=== PATIENT | male | born 1975 | race Caucasian/White ===

== ENCOUNTER 2020-08-31 04:38 | Outpatient (CLI) | payer MEDICAID | END 2020-08-31 23:59 | disposition critical access hospital (66) | LOC: EMS 04:38 | PROVIDERS: ATTEND Surgery | DX: S05.92XA Unspecified injury of left eye and orbit, initial encounter (principal); Y04.8XXA Assault by other bodily force, initial encounter; Y93.89 Activity, other specified | CPT/HCPCS: A0425; A0429; A0999 ==

== ENCOUNTER 2020-08-31 04:59 | Emergency (ER) | payer MEDICAID ==
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
[2020-08-31] MEDS ORDERED: oxyCODONE 5 MG TABLET PO STA (06:32)
[2020-08-31] MEDS ORDERED: ACETAMINOPHEN 325 MG TABLET PO STA (06:32)
[2020-08-31] MEDS ORDERED: cefTRIAXone 1 GM VIAL IM STA (06:33)
[2020-08-31] MEDS ORDERED: LIDOCAINE 1% 2 ML VIAL MC ONE (06:33)
[2020-08-31 07:26] VITALS: BP 138/72
--- NOTE | 2020-08-31 07:32 | CT Report ---
PROCEDURE: HEAD WO INDICATIONS: concussion TECHNIQUE: Noncontrast 4.5 mm thick angled axial sections acquired from the foramen magnum to the vertex. For r adiation dose reduction, the following was used: automated exposure control, adjustment of mA and/or kV according to patient size. COMPARISON: None. FINDINGS: Image quality: Excellent. CSF spaces: Basal cisterns are patent. No extra-axial fluid collections. Ventricles are normal in size and shape. Brain: No midline shift. No intracranial masses or hemorrhage. Meyer-white matter interface is norm al. Skull and face: Calvarium and visualized facial bones are intact, without suspicious lesions. Left p eriorbital soft tissue swelling and subcutaneous air noted. Sinuses: Air-fluid level noted in the visualized right maxillary sinus. The mastoids are clear. IMPRESSION: No acute intracranial disease process. Reviewed by: Amanda Walker MD, PhD on 08/31/2020 7:30 AM PST Approved by: Amanda Walker MD, PhD on 08/31/2020 7:30 AM PST Station ID: [id number]
--- NOTE | 2020-08-31 07:36 | CT Report ---
PROCEDURE: MAXILLOFACIAL WO INDICATIONS: L orbital contusion TECHNIQUE: Noncontrast 1.5 mm thick axial images acquired from the mandible through the frontal sinuses, with co emerson and sagittal reformatting. For radiation dose reduction, the following was used: automated ex posure control, adjustment of mA and/or kV according to patient size. COMPARISON: None. FINDINGS: Image quality: Excellent. Bones and teeth: Displaced fracture of the left medial orbit mishar noted. No conclusive evidence of left medial rectus muscle entrapment. No left retrobulbar inflammation or fluid collections. Sinus mishra show no fractu re or deformity. Nasal bones and septum are intact. Visualized portions of the mandible demonstrate no fractures or subluxation. Zygomatic arches are intact. Pterygoid plates are intact. Visualized portions of the skull base and auditory canals are intact. Sinuses: Mucosal thickening and air-fluid levels noted in the maxillary sinuses bilaterally. Mastoid air cells are aerated. Soft tissues: Left periorbital facial soft tissue swelling and large amount of left periorbital facia l subcutaneous air. No enlarged lymph nodes. No soft tissue lacerations or debris. Vascular: Visualized vascular structures appear normal in the absence of contrast. Bony vascular fo ramina and canals are intact. IMPRESSION: 1. Left medial orbit wall fracture. No definite evidence of extraocular muscle entrapment, however re lation with clinical findings is recommended. 2. Bilateral maxillary sinusitis. Reviewed by: Amanda Walker MD, PhD on 08/31/2020 7:35 AM [facility] Approved by: Amanda Walker MD, PhD on 08/31/2020 7:35 AM [facility] Station ID: [id number]
== END 2020-08-31 07:30 | disposition home or self-care (01) ==
LOC: EDBD → ED 04:59
DX: S02.32XA Fracture of orbital floor, left side, initial encounter for closed fracture (principal); S06.0X0A Concussion without loss of consciousness, initial encounter; Y04.0XXA Assault by unarmed brawl or fight, initial encounter; J01.00 Acute maxillary sinusitis, unspecified; Z59.0 Homelessness; F17.200 Nicotine dependence, unspecified, uncomplicated
CPT/HCPCS: 70450; 70486; 96372; 99284; A9270